=== PATIENT | female | born 1955 | race Caucasian/White ===

== ENCOUNTER 2024-07-21 12:33 | Inpatient (IN) | payer MEDICARE ==
--- NOTE | 2024-07-21 13:17 | ED ---
General Adult HPI - General Chief complaint: Recheck/Abnormal Lab/Rx Stated complaint: High blood pressure Time Seen by Provider: 07/21/24 12:36 Source: patient, family, RN/MD, RN notes reviewed, old records reviewed Mode of arrival: wheelchair Limitations: no limitations - History of Present Illness Initial comments: 69-year-old female history of hypertension presenting for the emergency department with elevated blood pressure and tachycardia. Patient was sent in by primary care. Patient states she has had several episodes that are similar to this over the past 1 year where her heart rate and blood pressure are elevated and she is flushed. Patient is currently on lisinopril and nifedipine. She states she did take these medications prior to arrival. She states she was previously on metoprolol but has been off this medication for some time. She has a headache. She denies focal numbness or weakness. Denies chest pain. Denies fever. - Related Data Allergies Allergy/AdvReac Type Severity Reaction Status Date / Time acetaminophen [From [place]] Allergy Rash/Hives Verified 07/21/24 13:25 hydrocodone [From [facility]] Allergy Rash/Hives Verified 07/21/24 13:25 rosuvastatin [From [place]] Allergy Chest Pain Verified 07/21/24 13:25 Review of Systems ROS Statement: Those systems with pertinent positive or pertinent negative responses have been documented in the HPI. ROS Other: All systems not noted in ROS Statement are negative. Past Medical History Past Medical History: CVA/TIA, Hyperlipidemia, Hypertension Past Surgical History: Tubal Ligation Additional Past Surgical History / Comment(s): hemorrhoidectomy Smoking Status: Former smoker Past Alcohol Use History: None Reported Past Drug Use History: Marijuana General Exam Limitations: no limitations General appearance: alert, in no apparent distress Head exam: Present: atraumatic, normocephalic Eye exam: Present: normal appearance, PERRL ENT exam: Present: normal exam Neck exam: Present: normal inspection. Absent: tenderness, meningismus Respiratory exam: Present: normal lung sounds bilaterally. Absent: respiratory distress, wheezes Cardiovascular Exam: Present: normal rhythm, tachycardia GI/Abdominal exam: Present: soft. Absent: distended, tenderness, guarding Extremities exam: Present: normal inspection, normal capillary refill Neurological exam: Present: alert, oriented X3 Psychiatric exam: Present: anxious Skin exam: Present: warm, erythema Course Vital Signs 07/21/24 07/21/24 07/21/24 12:34 12:52 13:00 Temperature 98.3 F Pulse Rate 129 H 124 H Respiratory 20 20 20 Rate Blood Pressure 163/86 182/101 O2 Sat by Pulse 100 96 Oximetry 07/21/24 07/21/24 14:00 14:45 Temperature Pulse Rate 125 H 100 Respiratory 16 20 Rate Blood Pressure 187/101 163/97 O2 Sat by Pulse 96 98 Oximetry Medical Decision Making - Medical Decision Making Was pt. sent in by a medical professional or institution (, FAREED, INTERNET DEVELOPER, urgent care, hospital, or jail...) When possible be specific @ -No Did you speak to anyone other than the patient for history (EMS, parent, family, police, friend...)? What history was obtained from this source @ -No Did you review nursing and triage notes (agree or disagree)? Why? @ -I reviewed and agree with nursing and triage notes Were old charts reviewed (outside hosp., previous admission, EMS record, old EKG, old radiological studies, urgent care reports/EKG's, jail records)? Report findings @ -No old charts were reviewed Differential Diagnosis (chest pain, altered mental status, abdominal pain women, abdominal pain men, vaginal bleeding, weakness, fever, dyspnea, syncope, headache, dizziness, GI bleed, back pain, seizure, CVA, palpatations, mental health, musculoskeletal)? @ -Not applicable EKG interpreted by me (3pts min.). @Sinus tachycardia rate of 121, DE interval 175, QRS duration 77, QTc [address] segment elevation. X-rays interpreted by me (1pt min.). @2 view chest x-ray negative for acute cardiopulmonary findings. CT interpreted by me (1pt min.). @ -CT brain Limited assessment but negative for intracranial hemorrhage, encephalomalacia from prior CVA U/S interpreted by me (1pt. min.). @ -None done What testing was considered but not performed or refused? (CT, X-rays, U/S, labs)? Why? @ -None What meds were considered but not given or refused? Why? @ -None Did you discuss the management of the patient with other professionals (professionals i.e. , FAREED, INTERNET DEVELOPER, lab, RT, psych nurse, social work job titles, clerk of works, teacher, unclaimed property officer, case management rn)? Give summary @ -Dr. Harrell Was smoking cessation discussed for >3mins.? @ -No Was critical care preformed (if so, how long)? @ yes 35 min Were there social determinants of health that impacted care today? How? (Homelessness, low income, unemployed, alcoholism, drug addiction, transportation, low edu. Level, literacy, decrease access to med. care, senior living, rehab)? @ -No Was there de-escalation of care discussed even if they declined (Discuss DNR or withdrawal of care, Hospice)? DNR status @ -No What co-morbidities impacted this encounter? (DM, HTN, Smoking, COPD, CAD, Cancer, CVA, ARF, Chemo, Hep., AIDS, mental health diagnosis, sleep apnea, morbid obesity)? @ -Hypertension, previous CVA. Was patient admitted / discharged? Hospital course, mention meds given and route, prescriptions, significant lab abnormalities, going to OR and other pertinent info. @69-year-old female with hypertension, tachycardia, facial flushing. Patient has had approximately 8-10 of these episodes over the past 1 year. She is on nifedipine and lisinopril currently. Upon arrival she is hypertensive and tachycardic. Laboratory testing, EKG, head CT and chest x-ray is obtained. She has a leukocytosis without identified infection. Normal CMP, negative troponin, negative D-dimer. Given the recurrence of these episodes I do have concern for pheochromocytoma, laboratory testing has been ordered results pending. Patient will be admitted for hypertensive urgency. Cardiology is placed on consult. Undiagnosed new problem with uncertain prognosis? @ -No Drug Therapy requiring intensive monitoring for toxicity (Heparin, Nitro, Insulin, Cardizem)? @ -No Were any procedures done? @ -No Diagnosis/symptom? @ -[Hypertensive urgency Acute, or Chronic, or Acute on Chronic? @ -Acute Uncomplicated (without systemic symptoms) or Complicated (systemic symptoms)? @ -[default Side effects of treatment? @ -No Exacerbation, Progression, or Severe Exacerbation? @ -No Poses a threat to life or bodily function? How? (Chest pain, [place], [place], pneumonia, PE, COPD, DKA, ARF, appy, cholecystitis, CVA, Diverticulitis, Homicidal, Suicidal, threat to staff... and all critical care pts) @ -[Yes, hypertensive urgency endorgan damage, CVA, [place] - Lab Data Result diagrams: 07/21/24 13:06 07/21/24 13:06 Lab Results 07/21/24 07/21/24 07/21/24 Range/Units 13:06 13:06 13:06 WBC 19.1 H (3.8-10.6) k/uL RBC 4.74 (3.80-5.40) m/uL Hgb 15.1 (11.4-16.0) gm/dL Hct 44.2 (34.0-46.0) % MCV 93.3 (80.0-100.0) fL MCH 31.9 (25.0-35.0) pg MCHC 34.2 (31.0-37.0) g/dL RDW 13.3 (11.5-15.5) % Plt Count 347 (150-450) k/uL MPV 7.3 Neutrophils % 92 % Lymphocytes % 4 % Monocytes % 3 % Eosinophils % 1 % Basophils % 0 % Neutrophils # 17.5 H (1.3-7.7) k/uL Lymphocytes # 0.8 L (1.0-4.8) k/uL Monocytes # 0.5 (0-1.0) k/uL Eosinophils # 0.2 (0-0.7) k/uL Basophils # 0.1 (0-0.2) k/uL PT 9.8 L (10.0-12.5) sec INR 0.9 (<1.2) APTT 23.1 (22.0-30.0) sec D-Dimer 0.54 (<0.60) mg/L FEU Sodium 136 L (137-145) mmol/L Potassium 4.5 (3.5-5.1) mmol/L Chloride 104 (98-107) mmol/L Carbon Dioxide 20 L (22-30) mmol/L Anion Gap 12 mmol/L BUN 15 (7-17) mg/dL Creatinine 0.98 (0.52-1.04) mg/dL Est GFR (CKD-EPI)AfAm 69 (>60 ml/min/1.73 sqM) Est GFR (CKD-EPI)NonAf 60 (>60 ml/min/1.73 sqM) Glucose 190 H (74-99) mg/dL Plasma Lactic Acid Chris (0.7-2.0) mmol/L Calcium 10.7 H (8.4-10.2) mg/dL Magnesium 1.6 (1.6-2.3) mg/dL Total Bilirubin 0.7 (0.2-1.3) mg/dL AST 22 (14-36) U/L ALT 26 (4-34) U/L Alkaline Phosphatase 88 (38-126) U/L Troponin I (0.000-0.034) ng/mL NT-Pro-B Natriuret Pep 445 pg/mL Total Protein 8.9 H (6.3-8.2) g/dL Albumin 5.7 H (3.5-5.0) g/dL TSH 3.090 (0.465-4.680) mIU/L Urine Color Urine Appearance (Clear) Urine pH (5.0-8.0) Ur Specific [place] (1.001-1.035) Urine Protein (Negative) Urine Glucose (UA) (Negative) Urine Ketones (Negative) Urine Blood (Negative) Urine Nitrite (Negative) Urine Bilirubin (Negative) Urine Urobilinogen (<2.0) mg/dL Ur Leukocyte Esterase (Negative) Urine RBC (0-5) /hpf Urine WBC (0-5) /hpf Ur Squamous Epith Cells (0-4) /hpf Urine Bacteria (None) /hpf Hyaline Casts (0-2) /lpf Urine Mucus (None) /hpf 07/21/24 07/21/24 07/21/24 Range/Units 13:06 13:06 14:06 WBC (3.8-10.6) k/uL RBC (3.80-5.40) m/uL Hgb (11.4-16.0) gm/dL Hct (34.0-46.0) % MCV (80.0-100.0) fL MCH (25.0-35.0) pg MCHC (31.0-37.0) g/dL RDW (11.5-15.5) % Plt Count (150-450) k/uL MPV Neutrophils % % Lymphocytes % % Monocytes % % Eosinophils % % Basophils % % Neutrophils # (1.3-7.7) k/uL Lymphocytes # (1.0-4.8) k/uL Monocytes # (0-1.0) k/uL Eosinophils # (0-0.7) k/uL Basophils # (0-0.2) k/uL PT (10.0-12.5) sec INR (<1.2) APTT (22.0-30.0) sec D-Dimer (<0.60) mg/L FEU Sodium (137-145) mmol/L Potassium (3.5-5.1) mmol/L Chloride (98-107) mmol/L Carbon Dioxide (22-30) mmol/L Anion Gap mmol/L BUN (7-17) mg/dL Creatinine (0.52-1.04) mg/dL Est GFR (CKD-EPI)AfAm (>60 ml/min/1.73 sqM) Est GFR (CKD-EPI)NonAf (>60 ml/min/1.73 sqM) Glucose (74-99) mg/dL Plasma Lactic Acid Chris 2.8 H* (0.7-2.0) mmol/L Calcium (8.4-10.2) mg/dL Magnesium (1.6-2.3) mg/dL Total Bilirubin (0.2-1.3) mg/dL AST (14-36) U/L ALT (4-34) U/L Alkaline Phosphatase (38-126) U/L Troponin I 0.028 (0.000-0.034) ng/mL NT-Pro-B Natriuret Pep pg/mL Total Protein (6.3-8.2) g/dL Albumin (3.5-5.0) g/dL TSH (0.465-4.680) mIU/L Urine Color Colorless Urine Appearance Clear (Clear) Urine pH 7.0 (5.0-8.0) Ur Specific [place] 1.010 (1.001-1.035) Urine Protein 2+ H (Negative) Urine Glucose (UA) Trace H (Negative) Urine Ketones 1+ H (Negative) Urine Blood Small H (Negative) Urine Nitrite Negative (Negative) Urine Bilirubin Negative (Negative) Urine Urobilinogen <2.0 (<2.0) mg/dL Ur Leukocyte Esterase Negative (Negative) Urine RBC 3 (0-5) /hpf Urine WBC 1 (0-5) /hpf Ur Squamous Epith Cells 1 (0-4) /hpf Urine Bacteria Rare H (None) /hpf Hyaline Casts 1 (0-2) /lpf Urine Mucus Rare H (None) /hpf Critical Care Time Critical Care Time: Yes Total Critical Care Time: 35 Disposition Clinical Impression: Hypertensive urgency Disposition: ADMITTED IP TO THIS HOSP Condition: Stable Is patient prescribed a controlled substance at d/c from ED?: No Referrals: Janina Higgins DO [Primary Care Provider] - 1-2 days Time of Disposition: 15:53
[2024-07-21] MEDS: SODIUM CHLORIDE 0.9% 500 ML 500 ML IV STA (13:24)
[2024-07-21 13:27] LABS: Basophils # (A) 0.1 k/uL (0-0.2); Basophils % (A) 0 %; Eosinophils # (A) 0.2 k/uL (0-0.7); Eosinophils % (A) 1 %; HCT 44.2 % (34.0-46.0); HGB 15.1 gm/dL (11.4-16.0); Lymphocytes # (A) 0.8 k/uL (1.0-4.8); Lymphocytes % (A) 4 %; MCH 31.9 pg (25.0-35.0); MCHC 34.2 g/dL (31.0-37.0); MCV 93.3 fL (80.0-100.0); Mean Platelet Volume 7.3; Monocytes # (A) 0.5 k/uL (0-1.0); Monocytes % (A) 3 %; Neutrophils # (A) 17.5 k/uL (1.3-7.7); Neutrophils % (A) 92 %; Platelet Count 347 k/uL (150-450); RBC 4.74 m/uL (3.80-5.40); RDW 13.3 % (11.5-15.5); WBC 19.1 k/uL (3.8-10.6)
[2024-07-21 13:42] LABS: INR 0.9 (<1.2); Partial Thromboplastin Time 23.1 sec (22.0-30.0); Prothrombin Time 9.8 sec (10.0-12.5)
--- NOTE | 2024-07-21 13:48 | XR ---
EXAMINATION TYPE: XR chest 2V DATE OF EXAM: 07/21/2024 1:37 PM COMPARISON: Chest radiographs from 07/21/2024 CLINICAL INDICATION: Female, 69 years old with history of Weakness; TECHNIQUE: XR chest 2V Frontal and lateral views of the chest. FINDINGS: Lungs/Pleura: There is no evidence of pleural effusion, focal consolidation, or pneumothorax. Pulmonary vascularity: Unremarkable. Heart/mediastinum: Cardiomediastinal silhouette is unremarkable. Musculoskeletal: No acute osseous pathology. IMPRESSION: No acute cardiopulmonary disease/process. [facility], , 07/21/2024 1:45 PM
[2024-07-21 13:55] LABS: ALT 26 U/L (4-34); AST 22 U/L (14-36); African American GFR (CKD) 69 (>60 ml/min/1.73 sqM); Albumin 5.7 g/dL (3.5-5.0); Alkaline Phosphatase 88 U/L (38-126); Anion Gap 12 mmol/L; Blood Urea Nitrogen 15 mg/dL (7-17); Calcium 10.7 mg/dL (8.4-10.2); Carbon Dioxide 20 mmol/L (22-30); Chloride 104 mmol/L (98-107); Glucose 190 mg/dL (74-99); Magnesium 1.6 mg/dL (1.6-2.3); Non-African American GFR(CKD) 60 (>60 ml/min/1.73 sqM); Potassium 4.5 mmol/L (3.5-5.1); Sodium 136 mmol/L (137-145); Total Bilirubin 0.7 mg/dL (0.2-1.3); Total Protein 8.9 g/dL (6.3-8.2)
[2024-07-21 14:05] LABS: NT-Pro-B-Type Natriuretic Pept 445 pg/mL
[2024-07-21 14:23] LABS: Appearance,Urine Clear (Clear); Bacteria,Urine Rare /hpf; Bilirubin,Urine Negative (Negative); Blood,Urine Small (Negative); Color,Urine Colorless; Glucose,Urine (UA) Trace (Negative); Hyaline Casts,Urine 1 /lpf (0-2); Ketones,Urine 1+ (Negative); Leukocyte Esterase,Urine Negative (Negative); Mucus,Urine Rare /hpf; Nitrite,Urine Negative (Negative); Protein,Urine 2+ (Negative); RBC,Urine 3 /hpf (0-5); Squamous Epithelial Cell,Urine 1 /hpf (0-4); Urobilinogen,Urine <2.0 mg/dL (<2.0); WBC,Urine 1 /hpf (0-5)
--- NOTE | 2024-07-21 14:23 | CT ---
EXAMINATION TYPE: CT brain wo con CT DLP: 1096 mGycm, Automated exposure control for dose reduction was used. DATE OF EXAM: 07/21/2024 2:07 PM COMPARISON: None. CLINICAL INDICATION:Female, 69 years old with history of ARNOLD/HTN, HYPERTENSION TECHNIQUE: Brain: Multiple axial CT images of the brain were obtained without IV contrast. . Coronal and sagitta l reformats reviewed. FINDINGS: Motion degraded examination. Brain: Extra-axial spaces: No abnormal extra-axial fluid collections. Ventricular system: Within normal limits Cerebral parenchyma: No gross evidence of acute intraparenchymal hemorrhage or mass effect. The gaitan -white junction is grossly well differentiated. Scattered hypoattenuating areas are seen within the p eriventricular white matter. Left parietal region of encephalomalacia. Cerebellum: Unremarkable. Mass effect: No evidence of midline shift. Intracranial vasculature: unremarkable Soft tissues: Normal. Calvarium/osseous structures: No gross evidence of depressed skull fracture. Paranasal sinuses and mastoid air cells: Clear Visualized orbits: No gross evidence of abnormality. IMPRESSION: 1. Significantly motion degraded examination with no gross evidence of acute intracranial process. C onsider repeat exam if there is continued clinical concern. 2. Left parietal encephalomalacia from prior injury. 3. Nonspecific white matter changes, likely secondary to chronic small vessel ischemic disease. [facility], , 07/21/2024 2:21 PM
[2024-07-21] MEDS: LABETALOL 5 MG/ML VIAL MDV IVP STA (14:40)
[2024-07-21] MEDS: SODIUM CHLORIDE 0.9% 1,000 ML IV SCH (14:41)
[2024-07-21] MEDS: LORazepam 2 MG/ML INJ IV STA (14:44)
[2024-07-21] MEDS ORDERED: NALOXONE 0.4 MG/ML 1 ML VIAL IV PRN (15:46)
[2024-07-21] MEDS: THIAMINE 100 MG TAB PO SCH (20:36)
[2024-07-21] MEDS: HEPARIN SODIUM,PORCINE 5,000 UNIT/ML 1 ML VIAL SQ SCH (23:41)
[2024-07-21] MEDS: LORazepam 0.5 MG TAB PO PRN (23:41)
--- NOTE | 2024-07-21 23:45 | P.HPIM ---
History of Present Illness H&P Date: 07/21/24 Chief Complaint: Elevated blood pressure Patient is a 69-year-old female with known history of CVA/TIA, hypertension, hyperlipidemia and prior history of smoking and marijuana use presents to ER with complaints of elevated blood pressure. Patient states that she got out of the bed this morning and had breakfast. Before taking blood pressure medications she checked her blood pressure and found to be elevated with SBP in 180s. Patient was sent to ER by her primary care physician. Patient also states he has several episodes of high blood pressure and flushing sensation of face for the past 1 year. She was also complaining of headache. No complaints of chest pain or shortness of breath. Denies any numbness or tingling distally. No leg swelling. No fever no chills. Any recent illnesses. Patient is currently on lisinopril and nifedipine at home which she did take today before coming to ER. On admission blood pressure 182/101 pulse of 124 respiration 28 pulse ox 96% on room air. Patient does have history of alcohol use disorder, quit [address] head showed significantly motion degraded examination. Left parietal encephalomalacia from prior injury. Nonspecific white matter changes likely secondary to chronic small vessel ischemic disease. EKG showed sinus tachycardia with heart rate 121 Chest x-ray showed no acute cardiopulmonary process/disease. Laboratory data showed sodium 136 potassium 4.5 chloride 104 bicarb is 20 BUN 15 creatinine 0.98 and blood sugar 190 lactic acid 2.8 and calcium 10.7 magnesium 1.6. proBNP 445 troponin 0.028 and TSH 3.090 D-dimer 0.54 Urinalysis is negative for infection. Review of Systems Constitutional: Patient denies any fever or chills . No generalized weakness or weight loss. Abdomen: Patient denied nausea vomiting and diarrhea and abdominal pain. Cardiovascular: Patient denies any chest pain or short of breath no palpitations. Respiratory: patient denied any cough or sputum production. No shortness of breath Neurologic: Patient denied any numbness or tingling. Positive for headache. Musculoskeletal: Patient denies any complaints of joint swelling or deformity. Skin: Negative Psychiatric: Negative Endocrine: No heat or cold intolerance. No recent weight gain. Genitourinary: No dysuria or hematuria. All other 14 point ROS negative except the above Past Medical History Past Medical History: CVA/TIA, Hyperlipidemia, Hypertension Past Surgical History: Tubal Ligation Additional Past Surgical History / Comment(s): hemorrhoidectomy Smoking Status: Former smoker Past Alcohol Use History: None Reported Past Drug Use History: Marijuana Medications and Allergies Allergies Allergy/AdvReac Type Severity Reaction Status Date / Time acetaminophen [From [place]] Allergy Rash/Hives Verified 07/21/24 13:25 hydrocodone [From [place]] Allergy Rash/Hives Verified 07/21/24 13:25 rosuvastatin [From Crestor] Allergy Chest Pain Verified 07/21/24 13:25 Physical Exam Vitals: Vital Signs Temp Pulse Pulse Resp BP BP Pulse Ox 07/21/24 19:38 98.6 F 124 H 15 140/82 96 07/21/24 16:02 98.9 F 112 H 19 165/87 97 07/21/24 14:45 100 20 163/97 98 07/21/24 14:00 125 H 16 187/101 96 07/21/24 13:00 124 H 20 182/101 96 07/21/24 12:52 20 07/21/24 12:34 98.3 F 129 H 20 163/86 100 Intake and Output 07/21/24 07/21/24 07/21/24 06:59 14:59 22:59 Other: Weight 58.967 kg PHYSICAL EXAMINATION: Patient is lying in the bed comfortably, no acute distress, awake alert but lethargic and drowsy. HEENT: Normocephalic. Neck is supple. Pupils reactive. Nostrils clear. Oral cavity is moist. Neck reveals no JVD, carotid bruits, or thyromegaly. CHEST EXAMINATION: Trachea is central. Symmetrical expansion. Lung keene clear to auscultation and percussion. CARDIAC: Normal S1, S2 with no gallops. No murmurs ABDOMEN: Soft. Bowel sounds normal. No organomegaly. No abdominal bruits. Extremities: reveal no edema. No clubbing or cyanosis Neurologically awake, alert, oriented x3 able to move all extremities. No gross focal deficits noted Skin: No rash or skin lesions. Psychiatric: Coperative. Nonsuicidal Musculoskeletal: No joint swelling or deformity. Normal range of motion. Results CBC & Chem 7: 07/21/24 13:06 07/21/24 13:06 Labs: Abnormal Lab Results - Last 24 Hours (Table) 07/21/24 07/21/24 07/21/24 Range/Units 13:06 13:06 13:06 WBC 19.1 H (3.8-10.6) k/uL Neutrophils # 17.5 H (1.3-7.7) k/uL Lymphocytes # 0.8 L (1.0-4.8) k/uL PT 9.8 L (10.0-12.5) sec Sodium 136 L (137-145) mmol/L Carbon Dioxide 20 L (22-30) mmol/L Glucose 190 H (74-99) mg/dL Plasma Lactic Acid Chris (0.7-2.0) mmol/L Calcium 10.7 H (8.4-10.2) mg/dL Total Protein 8.9 H (6.3-8.2) g/dL Albumin 5.7 H (3.5-5.0) g/dL Urine Protein (Negative) Urine Glucose (UA) (Negative) Urine Ketones (Negative) Urine Blood (Negative) Urine Bacteria (None) /hpf Urine Mucus (None) /hpf 07/21/24 07/21/24 Range/Units 13:06 14:06 WBC (3.8-10.6) k/uL Neutrophils # (1.3-7.7) k/uL Lymphocytes # (1.0-4.8) k/uL PT (10.0-12.5) sec Sodium (137-145) mmol/L Carbon Dioxide (22-30) mmol/L Glucose (74-99) mg/dL Plasma Lactic Acid Chris 2.8 H* (0.7-2.0) mmol/L Calcium (8.4-10.2) mg/dL Total Protein (6.3-8.2) g/dL Albumin (3.5-5.0) g/dL Urine Protein 2+ H (Negative) Urine Glucose (UA) Trace H (Negative) Urine Ketones 1+ H (Negative) Urine Blood Small H (Negative) Urine Bacteria Rare H (None) /hpf Urine Mucus Rare H (None) /hpf Thrombosis Risk Factor Assmnt - DVT/VTE Prophylaxis DVT/VTE Prophylaxis: Pharmacologic Prophylaxis ordered Assessment and Plan Assessment: Hypertensive urgency Sinus tachycardia Episodes of elevated blood pressure with flushing sensation in the face. Rule out secondary hypertension including pheochromocytoma Hypomagnesemia. Replaced. History of CVA/TIA with no residual weakness Alcohol use disorder quit drinking 3 months ago Marijuana use history Hypertension Hyperlipidemia Prior history of smoking Plan: Patient will be continued on telemonitoring. Was given labetalol 10 mg IV push in the ER. Patient will be started back on nifedipine XL. Continue gentle IV hydration. Thiamine and multivitamins. Cardiology was consulted for workup. Continue to follow closely. Time with Patient: Greater than 30
[2024-07-22] MEDS: MAGNESIUM SULFATE-D5W PMX 1 GM in DEXTROSE/WATER 1 100ML.BAG IVPB SCH (00:43)
[2024-07-22 06:24] LABS: Basophils % (A) 0 %; Eosinophils # (A) 0.1 k/uL (0-0.7); Eosinophils % (A) 1 %; HGB 14.4 gm/dL (11.4-16.0); Lymphocytes # (A) 1.6 k/uL (1.0-4.8); Lymphocytes % (A) 10 %; MCH 31.5 pg (25.0-35.0); MCHC 34.3 g/dL (31.0-37.0); MCV 91.8 fL (80.0-100.0); Mean Platelet Volume 7.6; Monocytes # (A) 1.1 k/uL (0-1.0); Monocytes % (A) 7 %; Neutrophils # (A) 13.8 k/uL (1.3-7.7); Neutrophils % (A) 82 %; Platelet Count 311 k/uL (150-450); RBC 4.58 m/uL (3.80-5.40); RDW 13.9 % (11.5-15.5); WBC 16.8 k/uL (3.8-10.6)
[2024-07-22 06:40] LABS: African American GFR (CKD) 63 (>60 ml/min/1.73 sqM); Anion Gap 11 mmol/L; Blood Urea Nitrogen 20 mg/dL (7-17); Calcium 10.1 mg/dL (8.4-10.2); Carbon Dioxide 21 mmol/L (22-30); Chloride 105 mmol/L (98-107); Glucose 139 mg/dL (74-99); Non-African American GFR(CKD) 55 (>60 ml/min/1.73 sqM); Potassium 4.2 mmol/L (3.5-5.1); Sodium 137 mmol/L (137-145)
[2024-07-22] MEDS: NIFEdipine XL 30 MG TAB.ER.24 PO SCH (08:12)
[2024-07-22] MEDS: MULTIVITAMINS, THERA 1 EACH TAB PO SCH (08:12)
[2024-07-22 14:18] LABS: Urine Alcohol Negative (Negative); Urine Barbiturate Negative (Negative); Urine Cocaine Negative (Negative); Urine Methadone Negative (Negative); Urine Opiates Negative (Negative); Urine Phencyclidine Negative (Negative)
[2024-07-22] MEDS: carvediloL 3.125 MG TAB PO SCH (17:33)
--- NOTE | 2024-07-22 17:42 | P.CRDCN ---
History of Present Illness Consult date: 07/22/24 History of present illness: HISTORY OF PRESENTING ILLNESS A 69-year-old female with a known history of CVA/TIA, hypertension, hyperlipidemia, and prior smoking and marijuana use presented to the ER with complaints of elevated blood pressure. She reported that after getting out of bed and having breakfast, she checked her blood pressure before taking her medications and found it to be elevated, with systolic blood pressure in the 180s. Her primary care physician sent her to the ER. She mentioned experiencing several episodes of high blood pressure and facial flushing over the past year, along with a headache. She denied any chest pain, shortness of breath, numbness, tingling, leg swelling, fever, chills, or recent illnesses. She is currently on lisinopril and nifedipine, which she took before coming to the ER. On admission, her blood pressure was 182/101 mmHg, pulse 124 bpm, respiration 28 breaths/min, and pulse oximetry 96% on room air. Diagnostic findings included a CT head scan that was significantly motion- degraded, showing left parietal encephalomalacia from a prior injury and nonspecific white matter changes likely secondary to chronic small vessel ischemic disease. An EKG revealed sinus tachycardia with a heart rate of 121 bpm, and a chest X-ray showed no acute cardiopulmonary process or disease. Laboratory data , BUN 15 mg/dL, creatinine 0.98 mg/dL, blood sugar 190 mg/dL, proBNP 445 pg/mL, troponin 0.028 ng/mL, TSH 3.090 IU/mL, The patient, with a significant medical history, presents with elevated blood pressure and associated symptoms. Initial diagnostics indicate sinus tachycardia and chronic small vessel ischemic disease but no acute cardiopulmonary issues. Laboratory results are mostly within normal ranges, with some notable findings such as elevated blood sugar and lactic acid. REVIEW OF SYSTEMS 14 point review of system is negative except what is mentioned above in HPI. PHYSICAL EXAMINATION Vital signs reviewed. Head: Normocephalic. Eyes: Sclerae nonicteric. Neck: Brisk carotid upstroke, no jugular venous distention. Lungs: Clear to auscultation. Heart: Regular rate and rhythm, S1-S2, no S3, no murmur or rub. Abdomen: Soft nontender, positive bowel sounds. Extremities: No edema, intact distal pulses. Neuro: Alert, oritented, no focal deficits. Detailed neuro exam was not performed. ASSESSMENT Hypertensive urgency Sinus tachycardia Previous alcohol use disorder, quit 3 months ago Marijuana use history Dyslipidemia Prior history of smoking PLAN Patient reports that she has bout of elevated blood pressure along with flushing in the face. It is reasonable to rule out pheochromocytoma. Start Coreg 3.125 mg twice daily Start losartan 50 mg daily. Discontinue nifedipine. Pollo Perez MD, FACC, RPVI Thank you for allowing [facility] to participate in this patient's care. Feel free to reach out in case of any followup questions. Past Medical History Past Medical History: CVA/TIA, Hyperlipidemia, Hypertension Past Surgical History: Tubal Ligation Additional Past Surgical History / Comment(s): hemorrhoidectomy Smoking Status: Former smoker Past Alcohol Use History: None Reported Past Drug Use History: Marijuana Medications and Allergies Home Medications Medication Instructions Recorded Confirmed Type Ezetimibe [Zetia] 10 mg PO DAILY 07/22/24 07/22/24 History Magnesium Oxide [Magnesium] 500 mg PO DAILY 07/22/24 07/22/24 History NIFEdipine XL [Procardia XL] 60 mg PO DAILY 07/22/24 07/22/24 History Zolpidem [Ambien] 5 mg PO HS 07/22/24 07/22/24 History buPROPion XL [Wellbutrin XL] 300 mg PO DAILY 07/22/24 07/22/24 History lisinopriL [Zestril] 20 mg PO DAILY 07/22/24 07/22/24 History Allergies Allergy/AdvReac Type Severity Reaction Status Date / Time acetaminophen [From [place]] AdvReac shaking Verified 07/22/24 08:54 hydrocodone [From [place]] AdvReac shaking Verified 07/22/24 08:54 rosuvastatin [From Crestor] AdvReac muscle pain Verified 07/22/24 08:54 Physical Exam Vitals: Vital Signs Temp Pulse Pulse Resp BP BP Pulse Ox 07/22/24 17:30 98.9 F 100 18 127/79 99 07/22/24 16:08 106 H 18 151/99 97 07/22/24 14:33 105 H 18 131/91 98 07/22/24 11:58 102 H 16 138/92 97 07/22/24 10:40 98 16 140/83 97 07/22/24 07:12 108 H 18 155/89 97 07/22/24 04:55 109 H 18 145/86 97 07/21/24 23:43 98 F 115 H 15 152/86 97 07/21/24 19:38 98.6 F 124 H 15 140/82 96 Intake and Output 07/22/24 07/22/24 07/22/24 06:59 14:59 22:59 Output Total 150 Balance -150 Output: Urine 150 Results 07/22/24 05:58 07/22/24 05:58 CBC 07/22/24 Range/Units 05:58 WBC 16.8 H (3.8-10.6) k/uL RBC 4.58 (3.80-5.40) m/uL Hgb 14.4 (11.4-16.0) gm/dL Hct 42.0 (34.0-46.0) % Plt Count 311 (150-450) k/uL Comprehensive Metabolic Panel 07/22/24 Range/Units 05:58 Sodium 137 (137-145) mmol/L Potassium 4.2 (3.5-5.1) mmol/L Chloride 105 (98-107) mmol/L Carbon Dioxide 21 L (22-30) mmol/L BUN 20 H (7-17) mg/dL Creatinine 1.06 H (0.52-1.04) mg/dL Glucose 139 H (74-99) mg/dL Calcium 10.1 (8.4-10.2) mg/dL Current Medications Generic Name Dose Route Start Last Admin Trade Name Freq PRN Reason Stop Dose Admin Aspirin 81 mg 07/22/24 17:45 Aspirin 81 Mg PO DAILY [facility] Atorvastatin Calcium 40 mg 07/22/24 21:00 Atorvastatin 40 Mg Tab PO HS FAY Carvedilol 3.125 mg 07/22/24 17:30 07/22/24 17:33 Carvedilol 3.125 Mg Tab PO 3.125 mg BID-W/MEALS FAY Administration Heparin Sodium (Porcine) 5,000 unit 07/22/24 00:00 07/22/24 16:32 Heparin Sodium,Porcine 5,000 Unit/Ml 1 Ml Vial SQ 5,000 unit Q8HR FAY Administration Sodium Chloride 1,000 mls @ 75 mls/hr 07/21/24 14:30 07/22/24 11:55 Saline 0.9% IV 75 mls/hr .[id number] FAY Administration Lorazepam 0.5 mg 07/21/24 15:46 07/21/24 23:41 Lorazepam 0.5 Mg Tab PO 0.5 mg Q6HR PRN Administration Anxiety Losartan Potassium 50 mg 07/23/24 09:00 Losartan 50 Mg Tab PO DAILY FAY Multivitamins 1 each 07/22/24 09:00 07/22/24 08:12 Multivitamins, Thera 1 Each Tab PO 1 each DAILY FAY Administration Naloxone HCl 0.2 mg 07/21/24 15:46 Naloxone 0.4 Mg/Ml 1 Ml Vial IV Q2M PRN Opioid Reversal Ondansetron HCl 4 mg 07/21/24 15:46 Ondansetron 4 Mg/2 Ml Vial IVP Q8HR PRN Nausea And Vomiting Thiamine HCl 100 mg 07/21/24 20:00 07/22/24 08:12 Thiamine 100 Mg Tab PO 100 mg DAILY FAY Administration Intake and Output 07/22/24 07/22/24 07/22/24 06:59 14:59 22:59 Output Total 150 Balance -150 Output: Urine 150 07/22/24 05:58 07/22/24 05:58
[2024-07-22] MEDS: ASPIRIN 81 MG PO SCH (19:01)
[2024-07-22] MEDS: ATORVASTATIN 40 MG TAB PO SCH (21:34)
[2024-07-22] MEDS: ZOLPIDEM 5 MG TAB PO PRN (23:44)
--- NOTE | 2024-07-23 07:08 | P.PN ---
Subjective Progress Note Date: 07/22/24 Patient is a 69-year-old female with known history of CVA/TIA, hypertension, hyperlipidemia and prior history of smoking and marijuana use presents to ER with complaints of elevated blood pressure. Patient states that she got out of the bed this morning and had breakfast. Before taking blood pressure m edications she checked her blood pressure and found to be elevated with SBP in 180s. Patient was sent to ER by her primary care physician. Patient also states he has several episodes of high blood pressure and flushing sensation of face for the past 1 year. She was also complaining of headache. No complaints of chest pain or shortness of breath. Denies any numbness or tingling distally. No leg swelling. No fever no chills. Any recent illnesses. Patient is currently on lisinopril and nifedipine at home which she did take today before coming to ER. On admission blood pressure 182/101 pulse of 124 respiration 28 pulse ox 96% on room air. Patient does have history of alcohol use disorder, quit [address] head showed significantly motion degraded examination. Left parietal enceph alomalacia from prior injury. Nonspecific white matter changes likely secondary to chronic small vessel ischemic disease. EKG showed sinus tachycardia with heart rate 121 Chest x-ray showed no acute cardiopulmonary process/disease. Laboratory data showed sodium 136 potassium 4.5 chloride 104 bicarb is 20 BUN 15 creatinine 0.98 and blood sugar 190 lactic acid 2.8 and calcium 10.7 magnesium 1.6. proBNP 445 troponin 0.028 and TSH 3.090 D-dimer 0.54 Urinalysis is negative for infection. 07/22/2024 Patient is seen in follow-up today continues to be holding the ER awaiting a bed. Blood pressure has improved and patient awaiting cardiology consultation. Patient may downgrade to [facility] with telemetry and await cardiology input and recommendations. Patient's blood pressure is improving and will continue current regimen. Patient is afebrile with no reports of chest pain or shortness of breath. Patient has been tolerating diet. 2D echo ordered and pending as well Review of systems: Constitutional: No reports of fatigue, fever, or chills Cardiovascular: No reports of chest pain or palpitations Respiratory: No reports of shortness of breath or cough GI: No reports of nausea, vomiting, or diarrhea : No reports of dysuria or retention Neurovascular: No reports of weakness or numbness Physical exam: Patient is lying in the bed comfortably, no acute distress, awake alert and valdez ented x 3, well-developed, elderly appearing, thin built HEENT: Normocephalic. Neck is supple. Pupils reactive. Nostrils clear. Oral cavity is moist. Neck reveals no JVD, carotid bruits, or thyromegaly. CHEST EXAMINATION: Trachea is central. Symmetrical expansion. Lung keene clear to auscultation and percussion. CARDIAC: S1, S2 are muffled, occasional sinus tachycardia on the monitor ABDOMEN: Soft. Bowel sounds normal. No organomegaly. No abdominal bruits. Extremities: reveal no edema. No clubbing or cyanosis Neurologically awake, alert, oriented x3 able to move all extremities. No gross focal deficits noted Skin: No rash or skin lesions. Psychiatric: Cooperative. Non-suicidal Musculoskeletal: No joint swelling or deformity. Normal range of motion. Assessment: Hypertensive urgency Sinus tachycardia Episodes of elevated blood pressure with flushing sensation in the face. Rule out secondary hypertension including pheochromocytoma Hypomagnesemia. Replaced. History of CVA/TIA with no residual weakness Alcohol use disorder quit drinking 3 months ago Marijuana use history Hypertension Hyperlipidemia Prior history of smoking GI prophylaxis DVT prophylaxis Full code Plan: Patient will be continued on telemonitoring. Okay for downgrade to [facility] as patient continues to await a bed on 3 S. Blood pressure improved and will continue current regimen. Patient being started on losartan by cardiology and will monitor overnight with possible discharge planning in the next 24 hours 2D echo ordered and pending Will follow-up on repeat labs and replace electrolytes per protocol Encouraged increase activity as tolerated Possible discharge in the next 24 to 48 hours The impression and plan of care has been dictated as a scribe by Enma Lee, Nurse Practitioner as directed. Dr. Julio Cesar MD I have performed a history and examination and MDM of this patient, discussed the same with the dictator, and agree with the dictator's assessment and plan as written ,documented as a scribe. Based on total visit time, I have performed more than 50% of the visit. Objective - Vital Signs Vital signs: Vital Signs Temp 98 F 07/21/24 23:43 Pulse 108 H 07/22/24 07:12 Resp 18 07/22/24 07:12 BP 155/89 07/22/24 07:12 Pulse Ox 97 07/22/24 07:12 FiO2 Intake & Output 07/21/24 07/22/24 07/22/24 18:59 06:59 18:59 Output Total 150 Balance -150 Weight 58.967 kg Output: Urine 150 - Labs CBC & Chem 7: 07/22/24 05:58 07/22/24 05:58 Labs: Abnormal Lab Results - Last 24 Hours (Table) 07/21/24 07/21/24 07/21/24 Range/Units 13:06 13:06 13:06 WBC 19.1 H (3.8-10.6) k/uL Neutrophils # 17.5 H (1.3-7.7) k/uL Lymphocytes # 0.8 L (1.0-4.8) k/uL Monocytes # (0-1.0) k/uL PT 9.8 L (10.0-12.5) sec Sodium 136 L (137-145) mmol/L Carbon Dioxide 20 L (22-30) mmol/L BUN (7-17) mg/dL Creatinine (0.52-1.04) mg/dL Glucose 190 H (74-99) mg/dL Plasma Lactic Acid Chris (0.7-2.0) mmol/L Calcium 10.7 H (8.4-10.2) mg/dL Total Protein 8.9 H (6.3-8.2) g/dL Albumin 5.7 H (3.5-5.0) g/dL Urine Protein (Negative) Urine Glucose (UA) (Negative) Urine Ketones (Negative) Urine Blood (Negative) Urine Bacteria (None) /hpf Urine Mucus (None) /hpf 07/21/24 07/21/24 07/22/24 Range/Units 13:06 14:06 05:58 WBC 16.8 H (3.8-10.6) k/uL Neutrophils # 13.8 H (1.3-7.7) k/uL Lymphocytes # (1.0-4.8) k/uL Monocytes # 1.1 H (0-1.0) k/uL PT (10.0-12.5) sec Sodium (137-145) mmol/L Carbon Dioxide (22-30) mmol/L BUN (7-17) mg/dL Creatinine (0.52-1.04) mg/dL Glucose (74-99) mg/dL Plasma Lactic Acid Chris 2.8 H* (0.7-2.0) mmol/L Calcium (8.4-10.2) mg/dL Total Protein (6.3-8.2) g/dL Albumin (3.5-5.0) g/dL Urine Protein 2+ H (Negative) Urine Glucose (UA) Trace H (Negative) Urine Ketones 1+ H (Negative) Urine Blood Small H (Negative) Urine Bacteria Rare H (None) /hpf Urine Mucus Rare H (None) /hpf 07/22/24 Range/Units 05:58 WBC (3.8-10.6) k/uL Neutrophils # (1.3-7.7) k/uL Lymphocytes # (1.0-4.8) k/uL Monocytes # (0-1.0) k/uL PT (10.0-12.5) sec Sodium (137-145) mmol/L Carbon Dioxide 21 L (22-30) mmol/L BUN 20 H (7-17) mg/dL Creatinine 1.06 H (0.52-1.04) mg/dL Glucose 139 H (74-99) mg/dL Plasma Lactic Acid Chris (0.7-2.0) mmol/L Calcium (8.4-10.2) mg/dL Total Protein (6.3-8.2) g/dL Albumin (3.5-5.0) g/dL Urine Protein (Negative) Urine Glucose (UA) (Negative) Urine Ketones (Negative) Urine Blood (Negative) Urine Bacteria (None) /hpf Urine Mucus (None) /hpf
[2024-07-23 07:45] LABS: Basophils % (A) 1 %; Eosinophils # (A) 0.1 k/uL (0-0.7); Eosinophils % (A) 2 %; HCT 37.3 % (34.0-46.0); HGB 12.7 gm/dL (11.4-16.0); Lymphocytes # (A) 2.2 k/uL (1.0-4.8); Lymphocytes % (A) 24 %; MCH 31.7 pg (25.0-35.0); MCHC 33.9 g/dL (31.0-37.0); MCV 93.6 fL (80.0-100.0); Mean Platelet Volume 7.8; Monocytes # (A) 0.5 k/uL (0-1.0); Monocytes % (A) 5 %; Neutrophils # (A) 5.9 k/uL (1.3-7.7); Neutrophils % (A) 67 %; Platelet Count 255 k/uL (150-450); RBC 3.99 m/uL (3.80-5.40); RDW 13.8 % (11.5-15.5); WBC 8.9 k/uL (3.8-10.6)
[2024-07-23 07:58] LABS: ALT 19 U/L (4-34); AST 18 U/L (14-36); African American GFR (CKD) 72 (>60 ml/min/1.73 sqM); Albumin 4.1 g/dL (3.5-5.0); Albumin/Globulin Ratio 1.9; Alkaline Phosphatase 51 U/L (38-126); Anion Gap 9 mmol/L; Blood Urea Nitrogen 18 mg/dL (7-17); Calcium 8.9 mg/dL (8.4-10.2); Carbon Dioxide 17 mmol/L (22-30); Chloride 111 mmol/L (98-107); Globulin 2.2 g/dL; Glucose 169 mg/dL (74-99); Magnesium 1.8 mg/dL (1.6-2.3); Non-African American GFR(CKD) 63 (>60 ml/min/1.73 sqM); Sodium 137 mmol/L (137-145); Total Bilirubin 0.5 mg/dL (0.2-1.3); Total Protein 6.3 g/dL (6.3-8.2)
[2024-07-23] MEDS: LOSARTAN 50 MG TAB PO SCH (08:05)
[2024-07-23] MEDS: ONDANSETRON 4 MG/2 ML VIAL IVP PRN (12:36)
[2024-07-23] MEDS: hydrALAZINE HCL 20 MG/ML 1 ML VIAL IVP STA (13:01)
[2024-07-23] MEDS: carvediloL 3.125 MG TAB PO STA (13:31)
[2024-07-23] MEDS: amLODIPine 5 MG TAB PO SCH (13:33)
[2024-07-23] MEDS: LABETALOL 100 MG TAB PO STA (15:08)
[2024-07-23] MEDS ORDERED: LABETALOL 5 MG/ML VIAL MDV IVP PRN (15:26)
[2024-07-23] MEDS: carvediloL 12.5 MG TAB PO SCH (16:02)
[2024-07-23] MEDS ORDERED: carvediloL 6.25 MG TAB PO SCH (17:30)
--- NOTE | 2024-07-23 20:24 | P.PN ---
Subjective Progress Note Date: 07/23/24 Patient is a 69-year-old female with known history of CVA/TIA, hypertension, hyperlipidemia and prior history of smoking and marijuana use presents to ER with complaints of elevated blood pressure. Patient states that she got out of the bed this morning and had breakfast. Before taking blood pressure m edications she checked her blood pressure and found to be elevated with SBP in 180s. Patient was sent to ER by her primary care physician. Patient also states he has several episodes of high blood pressure and flushing sensation of face for the past 1 year. She was also complaining of headache. No complaints of chest pain or shortness of breath. Denies any numbness or tingling distally. No leg swelling. No fever no chills. Any recent illnesses. Patient is currently on lisinopril and nifedipine at home which she did take today before coming to ER. On admission blood pressure 182/101 pulse of 124 respiration 28 pulse ox 96% on room air. Patient does have history of alcohol use disorder, quit [address] head showed significantly motion degraded examination. Left parietal enceph alomalacia from prior injury. Nonspecific white matter changes likely secondary to chronic small vessel ischemic disease. EKG showed sinus tachycardia with heart rate 121 Chest x-ray showed no acute cardiopulmonary process/disease. Laboratory data showed sodium 136 potassium 4.5 chloride 104 bicarb is 20 BUN 15 creatinine 0.98 and blood sugar 190 lactic acid 2.8 and calcium 10.7 magnesium 1.6. proBNP 445 troponin 0.028 and TSH 3.090 D-dimer 0.54 Urinalysis is negative for infection. 07/22/2024 Patient is seen in follow-up today continues to be holding the ER awaiting a bed. Blood pressure has improved and patient awaiting cardiology consultation. Patient may downgrade to [facility] with telemetry and await cardiology input and recommendations. Patient's blood pressure is improving and will continue current regimen. Patient is afebrile with no reports of chest pain or shortness of breath. Patient has been tolerating diet. 2D echo ordered and pending as well 07/23/2024 Patient is seen in follow-up today with cardiology following. Initially blood pressures were improved although patient started feeling nauseated with dizziness and headache and noted to have elevated blood pressures. Will continue telemetry monitoring and appreciate input and recommendations from cardiology. Recommend monitoring overnight for at least another 24 hours for improvements in blood pressures and symptomatic relief. Review of systems: Constitutional: No reports of fatigue, fever, or chills Cardiovascular: No reports of chest pain or palpitations Respiratory: No reports of shortness of breath or cough GI: No reports of nausea, vomiting, or diarrhea : No reports of dysuria or retention Neurovascular: Reports of weakness, lightheadedness, headache Physical exam: Patient is lying in the bed reporting headache and feeling nauseated, awake alert and oriented x 3, well-developed, elderly appearing, thin built HEENT: Normocephalic. Neck is supple. Pupils reactive. Nostrils clear. Oral cavity is moist. Neck reveals no JVD, carotid bruits, or thyromegaly. CHEST EXAMINATION: Trachea is central. Symmetrical expansion. Lung keene clear to auscultation and percussion. CARDIAC: S1, S2 are muffled, occasional sinus tachycardia on the monitor ABDOMEN: Soft. Bowel sounds normal. No organomegaly. No abdominal bruits. Extremities: reveal no edema. No clubbing or cyanosis Neurologically awake, alert, oriented x3 able to move all extremities. No gross focal deficits noted Skin: No rash or skin lesions. Psychiatric: Cooperative. Non-suicidal Musculoskeletal: No joint swelling or deformity. Normal range of motion. Assessment: Hypertensive urgency Sinus tachycardia Episodes of elevated blood pressure with flushing sensation in the face. Rule out secondary hypertension including pheochromocytoma Hypomagnesemia. Replaced. History of CVA/TIA with no residual weakness Alcohol use disorder quit drinking 3 months ago Marijuana use history Hypertension Hyperlipidemia Prior history of smoking GI prophylaxis DVT prophylaxis Full code Plan: Patient will be continued on telemonitoring. Cardiology following making adjustments to medications. Initially blood pressures were improved although elevated today and patient is reporting headache. Lightheadedness and feeling nauseated. Will continue with supportive care and await further input and recommendations from cardiology. Patient is being transferred to [facility]. 2D echo ordered and pending Will follow-up on repeat labs and replace electrolytes per protocol Encouraged increase activity as tolerated The impression and plan of care has been dictated as a scribe by Enma Lee, Nurse Practitioner as directed. Dr. Julio Cesar MD I have performed a history and examination and MDM of this patient, discussed the same with the dictator, and agree with the dictator's assessment and plan as written ,documented as a scribe. Based on total visit time, I have performed more than 50% of the visit. Objective - Vital Signs Vital signs: Vital Signs Temp 98.1 F 07/23/24 00:00 Pulse 87 07/23/24 00:00 Resp 16 07/23/24 00:00 BP 119/73 07/23/24 00:00 Pulse Ox 98 07/23/24 00:00 FiO2 Intake & Output 07/22/24 07/23/24 07/23/24 18:59 06:59 18:59 Weight 58.967 kg 56 kg Other: # Voids 1 - Labs CBC & Chem 7: 07/23/24 07:34 07/23/24 07:34 Labs: Abnormal Lab Results - Last 24 Hours (Table) 07/22/24 Range/Units 08:51 U Benzodiazepines Scrn Positive A (Negative) U Cannabinoids Screen Positive A (Negative)
[2024-07-23] MEDS ORDERED: carvediloL 12.5 MG TAB PO SCH (21:00)
--- NOTE | 2024-07-23 22:53 | P.PN ---
Subjective Progress Note Date: 07/23/24 HISTORY OF PRESENTING ILLNESS A 69-year-old female with a known history of CVA/TIA, hypertension, hyperli pidemia, and prior smoking and marijuana use presented to the ER with complaints of elevated blood pressure. She reported that after getting out of bed and having breakfast, she checked her blood pressure before taking her medications and found it to be elevated, with systolic blood pressure in the 180s. Her primary care physician sent her to the ER. She mentioned experiencing several episodes of high blood pressure and facial flushing over the past year, along with a headache. She denied any chest pain, shortness of breath, numbness, tingling, leg swelling, fever, chills, or recent illnesses. She is currently on lisinopril and nifedipine, which she took before coming to the ER. On admission, her blood pressure was 182/101 mmHg, pulse 124 bpm, respiration 28 breaths/min, and pulse oximetry 96% on room air. Diagnostic findings included a CT head scan that was significantly motion-degraded, showing left parietal encephalomalacia from a prior injury and nonspecific white matter changes likely secondary to chronic small vessel ischemic disease. An EKG revealed sinus tachycardia with a heart rate of 121 bpm, and a chest X-ray showed no acute cardiopulmonary process or disease. Laboratory data , BUN 15 mg/dL, creatinine 0.98 mg/dL, blood sugar 190 mg/dL, proBNP 445 pg/mL, troponin 0.028 ng/mL, TSH 3.090 IU/mL, The patient, with a significant medical history, presents with elevated blood pressure and associated symptoms. Initial diagnostics indicate sinus tachycardia and chronic small vessel ischemic disease but no acute cardiopulmonary issues. Laboratory results are mostly within normal ranges, with some notable findings such as elevated blood sugar and lactic acid. 07/23/2024 Patient still complaining to be having high blood pressure. Blood pressure 160s to 170s systolic, diastolic around 90, heart rate around 100 bpm, sinus tachycardia on telemetry. Patient reported feeling weak and having headache. For this I gave her 1 dose of labetalol 100 mg. PHYSICAL EXAMINATION Vital signs reviewed. Head: Normocephalic. Eyes: Sclerae nonicteric. Neck: Brisk carotid upstroke, no jugular venous distention. Lungs: Clear to auscultation. Heart: Regular rate and rhythm, S1-S2, no S3, no murmur or rub. Abdomen: Soft nontender, positive bowel sounds. Extremities: No edema, intact distal pulses. Neuro: Alert, oritented, no focal deficits. Detailed neuro exam was not performed. ASSESSMENT Hypertensive urgency Sinus tachycardia Previous alcohol use disorder, quit 3 months ago Marijuana use history Dyslipidemia Prior history of smoking PLAN Patient reports that she has bout of elevated blood pressure along with flushing in the face. It is reasonable to rule out pheochromocytoma. Increase Coreg to 25 mg twice daily Continue losartan 50 mg daily. As these medications will cause reflex tachycardia, discontinue nifedipine. Refrain from using hydralazine. Obtain updated echocardiogram Further recommendations to follow continue to monitor BP and telemetry Objective - Vital Signs Vital signs: Vital Signs Temp 98.2 F 07/23/24 19:38 Pulse 89 07/23/24 19:38 Resp 18 07/23/24 19:38 BP 139/84 07/23/24 19:38 Pulse Ox 97 07/23/24 19:38 FiO2 Intake & Output 07/23/24 07/23/24 07/24/24 06:59 18:59 06:59 Weight 56 kg Other: # Voids 1 1 - Labs CBC & Chem 7: 07/23/24 07:34 07/23/24 07:34 Labs: Abnormal Lab Results - Last 24 Hours (Table) 07/23/24 Range/Units 07:34 Chloride 111 H (98-107) mmol/L Carbon Dioxide 17 L (22-30) mmol/L BUN 18 H (7-17) mg/dL Glucose 169 H (74-99) mg/dL
[2024-07-24 08:18] LABS: Basophils # (A) 0.1 k/uL (0-0.2); Basophils % (A) 0 %; Eosinophils # (A) 0.1 k/uL (0-0.7); Eosinophils % (A) 1 %; HCT 40.2 % (34.0-46.0); HGB 13.8 gm/dL (11.4-16.0); Lymphocytes # (A) 2.2 k/uL (1.0-4.8); Lymphocytes % (A) 17 %; MCH 31.5 pg (25.0-35.0); MCHC 34.4 g/dL (31.0-37.0); MCV 91.8 fL (80.0-100.0); Mean Platelet Volume 7.9; Monocytes # (A) 0.7 k/uL (0-1.0); Monocytes % (A) 5 %; Neutrophils # (A) 9.9 k/uL (1.3-7.7); Neutrophils % (A) 76 %; Platelet Count 291 k/uL (150-450); RBC 4.38 m/uL (3.80-5.40); RDW 13.3 % (11.5-15.5); WBC 13.2 k/uL (3.8-10.6)
[2024-07-24 08:50] LABS: ALT 22 U/L (4-34); AST 20 U/L (14-36); African American GFR (CKD) 49 (>60 ml/min/1.73 sqM); Albumin 4.5 g/dL (3.5-5.0); Alkaline Phosphatase 61 U/L (38-126); Anion Gap 12 mmol/L; Blood Urea Nitrogen 30 mg/dL (7-17); Calcium 9.5 mg/dL (8.4-10.2); Carbon Dioxide 17 mmol/L (22-30); Chloride 104 mmol/L (98-107); Glucose 113 mg/dL (74-99); Non-African American GFR(CKD) 43 (>60 ml/min/1.73 sqM); Potassium 4.1 mmol/L (3.5-5.1); Sodium 133 mmol/L (137-145); Total Bilirubin 0.5 mg/dL (0.2-1.3); Total Protein 6.9 g/dL (6.3-8.2)
[2024-07-24] MEDS: LOSARTAN 25 MG TAB PO SCH (09:22)
--- NOTE | 2024-07-24 12:10 | P.PN ---
Subjective HISTORY OF PRESENT ILLNESS: A 69-year-old female with a known history of CVA/TIA, hypertension, hyperlipidemia, and prior smoking and marijuana use presented to the ER with complaints of elevated blood pressure. She reported that after getting out of bed and having breakfast, she checked her blood pressure before taking her medications and found it to be elevated, with systolic blood pressure in the 180s. Her primary care physician sent her to the ER. She mentioned experiencing several episodes of high blood pressure and facial flushing over the past year, along with a headache. She denied any chest pain, shortness of breath, numbness, tingling, leg swelling, fever, chills, or recent illnesses. She is currently on lisinopril and nifedipine, which she took before coming to the ER. On admission, her blood pressure was 182/101 mmHg, pulse 124 bpm, respiration 28 breaths/min, and pulse oximetry 96% on room air. Diagnostic findings included a CT head scan that was significantly motion- degraded, showing left parietal encephalomalacia from a prior injury and nonspecific white matter changes likely secondary to chronic small vessel isch emic disease. An EKG revealed sinus tachycardia with a heart rate of 121 bpm, and a chest X-ray showed no acute cardiopulmonary process or disease. Laboratory data , BUN 15 mg/dL, creatinine 0.98 mg/dL, blood sugar 190 mg/dL, proBNP 445 pg/mL, troponin 0.028 ng/mL, TSH 3.090 IU/mL, The patient, with a significant medical history, presents with elevated blood pressure and associated symptoms. Initial diagnostics indicate sinus tachycardia and chronic small vessel ischemic disease but no acute cardiopulmonary issues. Laboratory results are mostly within normal ranges, with some notable findings such as elevated blood sugar and lactic acid. 07/23/2024 Patient still complaining to be having high blood pressure. Blood pressure 160s to 170s systolic, diastolic around 90, heart rate around 100 bpm, sinus tachycardia on telemetry. Patient reported feeling weak and having headache. For this I gave her 1 dose of labetalol 100 mg. 07/24/2024 This is a 69-year-old female who follows in the office with Dr. Mosqueda. Patient is admitted to the hospital secondary to hypertensive urgency. Patient examined this morning the bedside. Patient currently denies chest pain or pressure. She denies shortness of breath. Blood pressure 115/72. Patient's heart rates are in the 70s. PHYSICAL EXAM: VITAL SIGNS: Reviewed. GENERAL: Well-developed in no acute distress. NECK: Supple. No JVD or thyromegaly LUNGS: Respirations even and unlabored. Lungs essentially clear to auscultation bilaterally. HEART: Regular rate and rhythm. S1 and S2 heard. EXTREMITIES: Normal range of motion. No clubbing or cyanosis. Peripheral pulses intact. No lower extremity edema ASSESSMENT: Hypertensive urgency Sinus tachycardia Previous alcohol use disorder, quit 3 months ago Marijuana use history Dyslipidemia Prior history of smoking PLAN: 2D echo ordered. Await results. Decrease losartan to 25 mg daily Continue additional cardiac medications Continue to monitor blood pressures No plans for stress testing at this time as patient states that she had a normal stress test within the past year Patient to follow-up postdischarge with Dr. Mosqueda Nurse practitioner note has been reviewed by physician. Signing provider agrees with the documented findings, assessment, and plan of care documented by LIVESTOCK SPECULATOR as a scribe. Objective - Vital Signs Vital signs: Vital Signs Temp 98.1 F 07/24/24 09:20 Pulse 70 07/24/24 09:20 Resp 18 07/24/24 09:20 BP 115/72 07/24/24 09:20 Pulse Ox 98 07/24/24 09:20 FiO2 Intake & Output 07/23/24 07/24/24 07/24/24 18:59 06:59 18:59 Intake Total 240 Balance 240 Weight 52.6 kg Intake: Oral 240 Other: # Voids 1 1 # Bowel Movements 1 - Labs CBC & Chem 7: 07/24/24 06:50 07/24/24 06:50 Labs: Abnormal Lab Results - Last 24 Hours (Table) 07/24/24 07/24/24 Range/Units 06:50 06:50 WBC 13.2 H (3.8-10.6) k/uL Neutrophils # 9.9 H (1.3-7.7) k/uL Sodium 133 L (137-145) mmol/L Carbon Dioxide 17 L (22-30) mmol/L BUN 30 H (7-17) mg/dL Creatinine 1.30 H (0.52-1.04) mg/dL Glucose 113 H (74-99) mg/dL
--- NOTE | 2024-07-24 14:16 | P.PN ---
Subjective Patient is a 69-year-old female with known history of CVA/TIA, hypertension, hyperlipidemia and prior history of smoking and marijuana use presents to ER with complaints of elevated blood pressure. Patient states that she got out of the bed this morning and had breakfast. Before taking blood pressure medications she checked her blood pressure and found to be elevated with SBP in 180s. Patient was sent to ER by her primary care physician. Patient also states he has several episodes of high blood pressure and flushing sensation of face for the past 1 year. She was also complaining of headache. No complaints of chest pain or shortness of breath. Denies any numbness or tingling distally. No leg swelling. No fever no chills. Any recent illnesses. Patient is currently on lisinopril and nifedipine at home which she did take today before coming to ER. On admission blood pressure 182/101 pulse of 124 respiration 28 pulse ox 96% on room air. Patient does have history of alcohol use disorder, quit [address] head showed significantly motion degraded examination. Left parietal encephalomalacia from prior injury. Nonspecific white matter changes likely secondary to chronic small vessel ischemic disease. EKG showed sinus tachycardia with heart rate 121 Chest x-ray showed no acute cardiopulmonary process/disease. Laboratory data showed sodium 136 potassium 4.5 chloride 104 bicarb is 20 BUN 15 creatinine 0.98 and blood sugar 190 lactic acid 2.8 and calcium 10.7 magnesium 1.6. proBNP 445 troponin 0.028 and TSH 3.090 D-dimer 0.54 Urinalysis is negative for infection. 07/22/2024 Patient is seen in follow-up today continues to be holding the ER awaiting a bed. Blood pressure has improved and patient awaiting cardiology consultation. Patient may downgrade to [facility] with telemetry and await cardiology input and recommendations. Patient's blood pressure is improving and will continue current regimen. Patient is afebrile with no reports of chest pain or shortness of breath. Patient has been tolerating diet. 2D echo ordered and pending as well 07/23/2024 Patient is seen in follow-up today with cardiology following. Initially blood pressures were improved although patient started feeling nauseated with di zziness and headache and noted to have elevated blood pressures. Will continue telemetry monitoring and appreciate input and recommendations from cardiology. Recommend monitoring overnight for at least another 24 hours for improvements in blood pressures and symptomatic relief. 07/24/2024 Objective - Vital Signs Vital signs: Vital Signs Temp 98.2 F 07/24/24 04:00 Pulse 79 07/24/24 04:00 Resp 16 07/24/24 04:00 BP 137/77 07/24/24 06:30 Pulse Ox 98 07/24/24 04:00 FiO2 Intake & Output 07/23/24 07/24/24 07/24/24 18:59 06:59 18:59 Weight 52.6 kg Other: # Voids 1 1 # Bowel Movements 1 - Exam GENERAL: The patient is alert and oriented x3, not in any acute distress. Well developed, well nourished. HEENT: Pupils are round and equally reacting to light. EOMI. No scleral icterus. No conjunctival pallor. Normocephalic, atraumatic. No pharyngeal erythema. No thyromegaly. CARDIOVASCULAR: S1 and S2 present. No murmurs, rubs, or gallops. PULMONARY: Chest is clear to auscultation, no wheezing , no crackles. ABDOMEN: Soft, nontender, nondistended, normoactive bowel sounds. No palpable organomegaly. MUSCULOSKELETAL: No joint swelling or deformity. EXTREMITIES: No cyanosis, clubbing, or pedal edema. NEUROLOGICAL: Gross neurological examination did not reveal any focal deficits. SKIN: No rashes. no petechiae. - Labs CBC & Chem 7: 07/24/24 06:50 07/24/24 06:50 Labs: Abnormal Lab Results - Last 24 Hours (Table) 07/23/24 Range/Units 07:34 Chloride 111 H (98-107) mmol/L Carbon Dioxide 17 L (22-30) mmol/L BUN 18 H (7-17) mg/dL Glucose 169 H (74-99) mg/dL Assessment and Plan Assessment: Hypertensive urgency, improved Sinus tachycardia, improved Acute kidney injury, mild most likely secondary to episodes of low blood pressure Episodes of elevated blood pressure with flushing sensation in the face. Rule out secondary hypertension including pheochromocytoma Hypomagnesemia. Replaced. History of CVA/TIA with no residual weakness Alcohol use disorder quit drinking 3 months ago Marijuana use history Hypertension Hyperlipidemia Prior history of smoking Plan: Continue with the current blood pressure medication recommended by baby registry sales consultant of [facility], lower dose of losartan and Norvasc Continue monitor blood pressure Monitor creatinine if it is continued to worsen may consider further workup or treatment Follow-up echocardiogram which was done and is pending Upon discharge patient needs to follow-up with PCP in 1 week as well as baby registry sales consultant Follow-up metanephrine workup Labs and medication were reviewed.. Continue same treatment. Continue with sy mptomatic treatment. Resume home medication. Monitor labs and vitals. DVT and GI prophylaxis. Further recommendations as per clinical course of the patient DVT prophylaxis: Subcutaneous heparin GI Prophylaxis: Pepcid Prognosis is guarded
--- NOTE | 2024-07-24 18:26 | CA ---
Transthoracic Echo Report Name: Isidra Moreno Age: 69 Gender: F : 1955 Exam Date: 07/24/2024 09:55 Exam Location: [facility] Ht (in): 65 Wt (lb): 130 Ordering Physician: Pollo Perez MD ([id number]) Attending/Referring Phys: Journeyman Mechanic Matilda Garcia RDCS Procedure CPT: Indications: cardiomyopathy Cardiac Hx: Technical Quality: Fair Contrast 1: Total Dose (mL): Contrast 2: Total Dose (mL): MEASUREMENTS (Male / Female) Normal Values 2D ECHO LV Diastolic Diameter PLAX 3.6 cm 4.2 - 5.9 / 3.9 - 5.3 cm LV Systolic Diameter PLAX 1.6 cm IVS Diastolic Thickness 1.3 cm 0.6 - 1.0 / 0.6 - 0.9 cm LVPW Diastolic Thickness 1.1 cm 0.6 - 1.0 / 0.6 - 0.9 cm LV Relative Wall Thickness 0.7 RV Internal Dim ED PLAX 2.1 cm LA Systolic Diameter LX 2.4 cm 3.0 - 4.0 / 2.7 - 3.8 cm LV Diastolic Volume MOD BP 27.3 cm??? 67 - 155 / 56 - 104 cm??? LV Systolic Volume MOD BP 10.1 cm??? 22 - 58 / 19 - 49 cm??? LV Ejection Fraction MOD BP 62.9 % >= 55 % LV Cardiac Index MOD BP 750.9 cm???/min???m??? LV Diastolic Volume MOD 4C 31.0 cm??? LV Systolic Volume MOD 4C 13.3 cm??? LV Ejection Fraction MOD 4C 56.9 % LV Cardiac Index MOD 4C 771.9 cm???/min???m??? LV Diastolic Length 4C 6.6 cm LV Systolic Length 4C 5.9 cm LV Diastolic Volume MOD 2C 22.5 cm??? LV Systolic Volume MOD 2C 7.0 cm??? LV Ejection Fraction MOD 2C 69.0 % LV Cardiac Index MOD 2C 680.3 cm???/min???m??? LV Diastolic Length 2C 6.1 cm LV Systolic Length 2C 5.2 cm LA Volume 53.1 cm??? 18 - 58 / 22 - 52 cm??? LA Volume Index 32.3 cm???/m??? 16 - 28 cm???/m??? M-MODE Aortic Root Diameter MM 3.4 cm LA Systolic Diameter MM 3.0 cm LA Ao Ratio MM 0.9 AV Cusp Separation MM 1.6 cm DOPPLER AV Peak Velocity 141.1 cm/s AV Peak Gradient 8.0 mmHg AI Peak Velocity 204.1 cm/s AI Peak Gradient 16.7 mmHg AI Pressure Half Time 889.6 ms LVOT Peak Velocity 145.5 cm/s LVOT Peak Gradient 8.5 mmHg LVOT Velocity Time Integral 30.5 cm MV Area PHT 2.7 cm??? Mitral E Point Velocity 43.8 cm/s Mitral A Point Velocity 69.7 cm/s Mitral E to A Ratio 0.6 MV Deceleration Time 284.3 ms FINDINGS Left Ventricle Left ventricular ejection fraction is estimated at 60-65%. Mildly increased septal wall thickness. Mildly increased posterior wall thickness. Hyperdynamic left ventricular systolic function. No obvious regional wall motion abnormalities. Right Ventricle Normal right ventricular size and function. Unable to estimate the right ventricular systolic pressure. Right Atrium Normal right atrial size. Left Atrium Mildly increased left atrial volume. Mitral Valve Structurally normal mitral valve. Trace mitral regurgitation. No mitral stenosis. Aortic Valve Trileaflet aortic valve. No aortic valve stenosis. Trace to mild aortic regurgitation. Tricuspid Valve Structurally normal tricuspid valve. Trace tricuspid regurgitation. No tricuspid stenosis. Pulmonic Valve Structurally normal pulmonic valve. No pulmonic stenosis. Trace pulmonic regurgitation. Pericardium No pericardial or pleural effusion. Echo free space anterior to the right ventricle likely represents a fat pad. Aorta Normal size aortic root and proximal ascending aorta. CONCLUSIONS Diagnosis: Hypertensive urgency Preserved LV size and function ejection fraction greater than 55 to 60% Previewed by: Dr. Rashid Duenas MD (Electronically Signed) Final Date: 24 July 2024 18:25
[2024-07-24] MEDS: FAMOTIDINE 20 MG/2 ML VIAL IV SCH (20:39)
[2024-07-25 08:34] LABS: Basophils # (A) 0.1 k/uL (0-0.2); Basophils % (A) 0 %; Eosinophils # (A) 0.1 k/uL (0-0.7); Eosinophils % (A) 1 %; HGB 13.3 gm/dL (11.4-16.0); Lymphocytes # (A) 2.4 k/uL (1.0-4.8); Lymphocytes % (A) 19 %; MCH 31.9 pg (25.0-35.0); MCHC 34.2 g/dL (31.0-37.0); MCV 93.1 fL (80.0-100.0); Mean Platelet Volume 7.5; Monocytes # (A) 0.7 k/uL (0-1.0); Monocytes % (A) 6 %; Neutrophils % (A) 72 %; Platelet Count 292 k/uL (150-450); RBC 4.18 m/uL (3.80-5.40); RDW 12.8 % (11.5-15.5); WBC 12.5 k/uL (3.8-10.6)
[2024-07-25 08:43] LABS: African American GFR (CKD) 60 (>60 ml/min/1.73 sqM); Anion Gap 10 mmol/L; Blood Urea Nitrogen 29 mg/dL (7-17); Calcium 9.7 mg/dL (8.4-10.2); Carbon Dioxide 16 mmol/L (22-30); Chloride 106 mmol/L (98-107); Glucose 183 mg/dL (74-99); Non-African American GFR(CKD) 52 (>60 ml/min/1.73 sqM); Potassium 4.3 mmol/L (3.5-5.1); Sodium 132 mmol/L (137-145)
[2024-07-25 09:11] VITALS: TEMP 98.1
--- NOTE | 2024-07-25 10:51 | P.PN ---
Subjective Progress Note Date: 07/25/24 A 69-year-old female with a known history of CVA/TIA, hypertension, hyperlipidemia, and prior smoking and marijuana use presented to the ER with complaints of elevated blood pressure. She reported that after getting out of bed and having breakfast, she checked her blood pressure before taking her medications and found it to be elevated, with systolic blood pressure in the 180s. Her primary care physician sent her to the ER. She mentioned experiencing several episodes of high blood pressure and facial flushing over the past year, along with a headache. She denied any chest pain, shortness of breath, numbness, tingling, leg swelling, fever, chills, or recent illnesses. She is currently on lisinopril and nifedipine, which she took before coming to the ER. On admission, her blood pressure was 182/101 mmHg, pulse 124 bpm, respiration 28 breaths/min, and pulse oximetry 96% on room air. Diagnostic findings included a CT head scan that was significantly motion- degraded, showing left parietal encephalomalacia from a prior injury and nonspecific white matter changes likely secondary to chronic small vessel ischemic disease. An EKG revealed sinus tachycardia with a heart rate of 121 bpm, and a chest X-ray showed no acute cardiopulmonary process or disease. Laboratory data , BUN 15 mg/dL, creatinine 0.98 mg/dL, blood sugar 190 mg/dL, proBNP 445 pg/mL, troponin 0.028 ng/mL, TSH 3.090 IU/mL, The patient, with a significant medical history, presents with elevated blood pressure and associated symptoms. Initial diagnostics indicate sinus tachycardia and chronic small vessel ischemic disease but no acute cardiopulmonary issues. Laboratory results are mostly within normal ranges, with some notable findings such as elevated blood sugar and lactic acid. 07/23/2024 Patient still complaining to be having high blood pressure. Blood pressure 160s to 170s systolic, diastolic around 90, heart rate around 100 bpm, sinus tachycardia on telemetry. Patient reported feeling weak and having headache. For this I gave her 1 dose of labetalol 100 mg. 07/24/2024 This is a 69-year-old female who follows in the office with Dr. Mosqueda. Patient is admitted to the hospital secondary to hypertensive urgency. Patient examined this morning the bedside. Patient currently denies chest pain or pressure. She denies shortness of breath. Blood pressure 115/72. Patient's heart rates are in the 70s. 07/25/2024 Patient is seen and examined at bedside this a.m. Blood pressure is much better controlled, no reported lightheadedness or dizziness. PHYSICAL EXAM: VITAL SIGNS: Reviewed. GENERAL: Well-developed in no acute distress. NECK: Supple. No JVD or thyromegaly LUNGS: Respirations even and unlabored. Lungs essentially clear to auscultation bilaterally. HEART: Regular rate and rhythm. S1 and S2 heard. EXTREMITIES: Normal range of motion. No clubbing or cyanosis. Peripheral pulses intact. No lower extremity edema ASSESSMENT: Hypertensive urgency Sinus tachycardia Previous alcohol use disorder, quit 3 months ago Marijuana use history Dyslipidemia Prior history of smoking Echocardiogram shows preserved LV size systolic function EF 55 to 60% no major valvular abnormality PLAN: Discharge medications should include Coreg 25 mg twice daily, amlodipine 2.5 mg daily, losartan 25 mg daily. Okay to be discharged from cardiac standpoint Recommend outpatient follow-up with cardiology next 1 to 2 weeks. Maintain blood pressure log. Refrain from excessive salt intake Reevaluate ischemic evaluation if she has not had any stress test recently Objective - Vital Signs Vital signs: Vital Signs Temp 98.1 F 07/25/24 08:10 Pulse 76 07/25/24 08:10 Resp 18 07/25/24 08:10 BP 107/71 07/25/24 08:10 Pulse Ox 98 07/25/24 09:20 FiO2 Intake & Output 07/24/24 07/25/24 07/25/24 18:59 06:59 18:59 Intake Total 476 240 Balance 476 240 Weight 52.6 kg Intake: Oral 476 240 Other: # Voids 2 1 - Labs CBC & Chem 7: 07/25/24 07:33 07/25/24 07:33 Labs: Abnormal Lab Results - Last 24 Hours (Table) 07/25/24 07/25/24 Range/Units 07:33 07:33 WBC 12.5 H (3.8-10.6) k/uL Neutrophils # 9.0 H (1.3-7.7) k/uL Sodium 132 L (137-145) mmol/L Carbon Dioxide 16 L (22-30) mmol/L BUN 29 H (7-17) mg/dL Creatinine 1.11 H (0.52-1.04) mg/dL Glucose 183 H (74-99) mg/dL
[2024-07-25 11:33] VITALS: BP 96/65; PULSE 77; RESP 17
--- NOTE | 2024-07-25 21:49 | P.DS ---
Providers Date of admission: 07/21/24 15:47 Attending physician: Jaxon Harrell Consults: 07/21/24 15:46 Consult Physician Routine Consulting Provider: Corey Dick Consult Reason/Comments: HTN Urgency Do you want consulting provider notified?: Yes Primary care physician: Janina Barnett Hospital Course: Diagnoses: Hypertensive urgency, improved Sinus tachycardia, improved Acute kidney injury, mild most likely secondary to episodes of low blood pressure, improved Episodes of elevated blood pressure with flushing sensation in the face. Rule out secondary hypertension including pheochromocytoma. Workup pending and patient going to follow-up outpatient Hypomagnesemia. Replaced. History of CVA/TIA with no residual weakness Alcohol use disorder quit drinking 3 months ago Marijuana use history Hypertension Hyperlipidemia Prior history of smoking Hospital course: Patient is a 69-year-old female with known history of CVA/TIA, hypertension, hyperlipidemia and prior history of smoking and marijuana use presents to ER with complaints of elevated blood pressure. Patient on admission blood pressure was 187/110, currently improved. Patient evaluated by hand booked folder and stitcher. She was taking nifedipine 60 mg and lisinopril 20 mg which was discontinued and she was started on Coreg 25 mg losartan 25 mg and Norvasc 2.5 mg after adjusting the doses of this medication down prior to discharge per Innersole Maker. Her blood pressure actually improved to low normal 2 days ago, as a result creatinine went up to 1.3, the doses of losartan lowered to 25 mg and creatinine down to 1.1 today. Patient remains asymptomatic. Mentation at baseline no chest pain no dyspnea. No other new complaint. Patient was walking in her room today and telling me she wants to go home today. She feels fine. Patient was cleared for discharge by hand booked folder and stitcher. Prescription for the new medication is provided for the patient upon discharge as well as detailed instruction Problems and management plan were discussed with the patient and he verbalized understanding and acceptance Patient was found stable and can be discharged home in guarded prognosis however he needs follow-up as an outpatient. Patient was instructed to follow up with PCP Dr. Barnett within one week and patient agrees Patient was instructed to follow-up with hand booked folder and stitcher Dr. Hathaway in 1 week after discharge and she agrees Physical exam Gen: patient is a AAOx3, no distress CVS: S1-S2, RRR, no murmur Lungs: B/L CTA, no wheezing Abdomen: soft, no distention, no tenderness, positive bowel sounds Extremity: no leg edema or induration Time spent more than 35 minutes Patient Condition at Discharge: Stable Plan - Discharge Summary Discharge Rx Participant: No New Discharge Prescriptions: New carvediloL [Coreg] 25 mg PO BID 30 Days #60 tab Multivitamins, Thera [Multivitamin (formulary)] 1 each PO DAILY #30 tab Aspirin 81 mg PO DAILY #30 tab Losartan [Cozaar] 25 mg PO DAILY #30 tab Atorvastatin [Lipitor] 40 mg PO HS #30 tab Thiamine [Vitamin B-1] 100 mg PO DAILY #30 tab amLODIPine [Norvasc] 2.5 mg PO DAILY #30 tablet Continue buPROPion XL [Wellbutrin XL] 300 mg PO DAILY Magnesium Oxide [Magnesium] 500 mg PO DAILY Discontinued Zolpidem [Ambien] 5 mg PO HS NIFEdipine XL [Procardia XL] 60 mg PO DAILY lisinopriL [Zestril] 20 mg PO DAILY Ezetimibe [Zetia] 10 mg PO DAILY Discharge Medication List Magnesium Oxide [Magnesium] 500 mg PO DAILY 07/22/24 [History] buPROPion XL [Wellbutrin XL] 300 mg PO DAILY 07/22/24 [History] Aspirin 81 mg PO DAILY #30 tab 07/25/24 [Rx] Atorvastatin [Lipitor] 40 mg PO HS #30 tab 07/25/24 [Rx] Losartan [Cozaar] 25 mg PO DAILY #30 tab 07/25/24 [Rx] Multivitamins, Thera [Multivitamin (formulary)] 1 each PO DAILY #30 tab 07/25/24 [Rx] Thiamine [Vitamin B-1] 100 mg PO DAILY #30 tab 07/25/24 [Rx] amLODIPine [Norvasc] 2.5 mg PO DAILY #30 tablet 07/25/24 [Rx] carvediloL [Coreg] 25 mg PO BID 30 Days #60 tab 07/25/24 [Rx] Follow up Appointment(s)/Referral(s): Janina Barnett DO [Primary Care Provider] - 1-2 days Chase Mosqueda MD [STAFF PHYSICIAN] - 1 Week Patient Instructions/Handouts: Chronic Hypertension (DC) Activity/Diet/Wound Care/Special Instructions: Heart healthy diet Activity is restricted till you see your doctor Discharge Disposition: HOME SELF-CARE
[2024-07-27 09:11] LABS: Urine Creatinine, 24 Hr 0.5 gm/24h (0.8-1.8)
== END 2024-07-25 12:47 | disposition home or self-care (01) | DRG 305 ==
LOC: EC 12:33 → 3SCARD 15:47 → 4SSUR 07-22 16:04 → 3SCARD 07-23 16:05
PROVIDERS: ADMIT Internal Medicine; ATTEND Internal Medicine
DX: I16.0 Hypertensive urgency (principal); N17.9 Acute kidney failure, unspecified; R00.0 Tachycardia, unspecified; I10 Essential (primary) hypertension; E83.42 Hypomagnesemia; F10.10 Alcohol abuse, uncomplicated; E78.5 Hyperlipidemia, unspecified; G93.89 Other specified disorders of brain; Z79.899 Other long term (current) drug therapy; Z86.73 Personal history of transient ischemic attack (TIA), and cerebral infarction without residual deficits; Z87.891 Personal history of nicotine dependence; Z88.8 Allergy status to other drugs, medicaments and biological substances
CPT/HCPCS: 36415; 70450; 71046; 80048; 80053; 80306; 81001; 82384; 83036; 83605; 83735; 83835; 83880; 84443; 84484; 85025; 85379; 85610; 85730; 93005; 93306; 94760; 96361; 96365; 96366; 96372; 96375; 99291